=== PATIENT | male | born 1995 | race Caucasian/White ===

== ENCOUNTER 2018-10-05 14:56 | Emergency (ER) | payer OTHER ==
[2018-10-05] MEDS ORDERED: NS 1,000 ML IV ONE ×2 (15:44→16:40)
[2018-10-05] MEDS ORDERED: ONDANSETRON 4 MG/2 ML VIAL IVP ONE (15:44)
--- NOTE | 2018-10-05 15:53 | EDPHY ---
HPI/HX/ROS/PE/MDM Narrative: CHIEF COMPLAINT: Nausea, vomiting, diarrhea. HPI: This patient is a 23 year old male with history of sick sinus syndrome. He presents with abdominal pain and black diarrhea which began Monday morning around 6am. His discomfort is primarily periumbilical and in the upper quadrants. He endorses vomiting and bloating, and notes he has had bright red blood on toilet tissue unable to tolerate foods or liquids by mouth. He has felt febrile and endorses sweats and chills. He denies any history of similar symptoms. He has has inguinal hernia repair but no other abdominal surgeries. He denies any recent antibiotic use, international travel, or unusual foods. REVIEW OF SYSTEMS: A comprehensive 10 system review of systems is otherwise negative aside from elements mentioned in the history of present illness and medical decision making. PMH: Sick sinus syndrome, pacemaker placed. Inguinal hernia repair. SOCIAL HISTORY: Student. Single. Lives in [place]. PHYSICAL EXAM: General:Patient is alert, in no acute distress. ENT:Eyes are normal to inspection. ENT inspection normal. Neck: Normal inspection. Full range of motion. Respiratory:No respiratory distress. Breath sounds normal bilaterally. Cardiovascular: Regular rate and rhythm. Strong peripheral pulses. Normal cap refill. Abdomen: Generalized abdominal tenderness, particularly in the LLQ. There are no peritoneal signs. There are normal bowel sounds. Back: Normal to inspection. No tenderness to palpation. Skin: Normal color. No rash. Warm and dry. Extremities: Normal appearance. Full range of motion. Neuro: Oriented x3. Normal motor function. Normal sensory function. ED Course: 23 y/o male presents with abdominal pain, vomiting, and diarrhea. On exam, he has generalized abdominal tenderness, particularly in the LLQ. The patient is concerned due to lack of insurance, and wishes to be frugal with his testing today. He agrees to CBC and chemistries. Plan to administer 1L IV NS and 4mg IV Zofran for symptom relief. Quoted $150 for stool PCR per lab staff at 16:40. Discussed this with patient. He wishes to proceed with this test. Plan to administer an additional 1L IV NS. Patient declines CT. Plan to discharge home in good condition with prescription for Zofran. Follow up and strict return precautions discussed. He will call for results of his GI pathogen PCR. He is comfortable with this plan. - Data Points Laboratory Results: Laboratory Results 04/26/19 15:53 10/05/18 15:53 10/05/18 10/05/18 15:53 15:53 WBC 7.13 10^3/uL 10^3/uL (3.80-9.50) RBC 5.89 10^6/uL 10^6/uL (4.40-6.38) Hgb 18.7 g/dL H g/dL (13.7-17.5) Hct 52.1 % H % (40.0-51.0) MCV 88.5 fL fL (81.5-99.8) MCH 31.7 pg pg (27.9-34.1) MCHC 35.9 g/dL g/dL (32.4-36.7) RDW 12.0 % % (11.5-15.2) Plt Count 219 10^3/uL 10^3/uL (150-400) MPV 10.6 fL fL (8.7-11.7) Neut % (Auto) 74.4 % H % (39.3-74.2) Lymph % (Auto) 12.8 % L % (15.0-45.0) [place] % (Auto) 12.1 % % (4.5-13.0) Eos % (Auto) 0.1 % L % (0.6-7.6) Baso % (Auto) 0.3 % % (0.3-1.7) Nucleat RBC Rel Count 0.0 % % (0.0-0.2) Absolute Neuts (auto) 5.31 10^3/uL 10^3/uL (1.70-6.50) Absolute Lymphs (auto) 0.91 10^3/uL L 10^3/uL (1.00-3.00) Absolute Monos (auto) 0.86 10^3/uL H 10^3/uL (0.30-0.80) Absolute Eos (auto) 0.01 10^3/uL L 10^3/uL (0.03-0.40) Absolute Basos (auto) 0.02 10^3/uL 10^3/uL (0.02-0.10) Absolute Nucleated RBC 0.00 10^3/uL 10^3/uL (0-0.01) Immature Gran % 0.3 % % (0.0-1.1) Immature Gran # 0.02 10^3/uL 10^3/uL (0.00-0.10) Sodium 132 mEq/L L mEq/L (135-145) Potassium 3.8 mEq/L mEq/L (3.5-5.2) Chloride 97 mEq/L mEq/L (97-110) Carbon Dioxide 18 mEq/l L mEq/l (22-31) Anion Gap 17 mEq/L H mEq/L (6-14) BUN 20 mg/dL mg/dL (7-23) Creatinine 1.0 mg/dL mg/dL (0.7-1.3) Estimated GFR > 60 Glucose 86 mg/dL mg/dL (70-100) Calcium 9.7 mg/dL mg/dL (8.5-10.4) Medications Given: Discontinued Medications Sodium Chloride (Ns) 1,000 mls @ 0 mls/hr IV EDNOW ONE; Wide Open PRN Reason: Protocol Stop: 10/05/18 15:45 Last Admin: 10/05/18 15:54 Dose: 1,000 mls Sodium Chloride (Ns) 1,000 mls @ 0 mls/hr IV EDNOW ONE; Wide Open PRN Reason: Protocol Stop: 10/05/18 16:41 Last Admin: 10/05/18 16:48 Dose: 1,000 mls Ondansetron HCl (Zofran) 4 mg IVP EDNOW ONE Stop: 10/05/18 15:45 Last Admin: 10/05/18 15:54 Dose: 4 mg Microbiology Results: MICROBIOLOGY 10/05/18 16:45 Stool Gastrointestinal Tract Panel (PCR) - Final Rotavirus A General Time Seen by Provider: 10/05/18 15:42 Initial Vital Signs: Initial Vital Signs Temperature (C) 36.7 C 10/05/18 15:09 Heart Rate 87 10/05/18 15:09 Respiratory Rate 16 10/05/18 15:09 Blood Pressure 114/96 H 10/05/18 15:09 O2 Sat (%) 97 10/05/18 15:09 O2 Delivery Mode Room Air Allergies/Adverse Reactions: No Known Allergies Allergy (Unverified 10/05/18 15:08) Home Medications: Medication Instructions Recorded Imodium 2 mg (*) 10/05/18 Ondansetron Odt [Zofran Odt] 4 mg PO Q4PRN PRN #10 tab 10/05/18 Pepto-Bismol 10/05/18 Tums 500MG (*) 10/05/18 Departure - Departure Disposition: Home, Routine, Self-Care Clinical Impression: Abdominal pain, Nausea vomiting and diarrhea Condition: Good Instructions: Acute Nausea and Vomiting (ED), Acute Diarrhea (ED), Acute Abdominal Pain (ED) Additional Instructions: Follow-up with your primary doctor within 72 hours. Take Zofran as prescribed as needed for nausea. Call back in 24 hours for the results of your GI pathogen test. Return to the Emergency Department for worsening pain, fever, severe vomiting, change in character or severity of pain or other worsening of condition. Referrals: Skip Coello MD [[facility] [place]] - As per Instructions Prescriptions: Ondansetron Odt [Zofran Odt] 4 mg PO Q4PRN PRN #10 tab PRN Reason: Nausea Report Scribed for: Bennett Plunkett Report Scribed by: Adelaida Ashton Date of Report: 10/05/18 Time of Report: 15:52 Physician Review and Approval Statement: Portions of this note were transcribed by an ED scribe. I personally performed the history, physical exam, and medical decision making; and confirm the accuracy of the information in the transcribed note.
[2018-10-05 15:58] LABS: PLATELET COUNT 219 10^3/uL (150-400)
[2018-10-05 16:53] VITALS: BP 115/88
== END 2018-10-05 17:40 | disposition home or self-care (01) ==
DX: R11.2 Nausea with vomiting, unspecified (principal); R10.10 Upper abdominal pain, unspecified; R10.815 Periumbilic abdominal tenderness; R19.7 Diarrhea, unspecified; E86.9 Volume depletion, unspecified
CPT/HCPCS: 96374; J2405